=== PATIENT | male | born 1995 | race Two or more races ===

== ENCOUNTER 2021-02-24 15:17 | Emergency (ER) | payer OTHER ==
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
[2021-02-24 16:49] VITALS: BP 143/88
== END 2021-02-24 16:53 | disposition home or self-care (01) ==
LOC: ED 15:17
DX: S01.511A Laceration without foreign body of lip, initial encounter (principal); S02.2XXA Fracture of nasal bones, initial encounter for closed fracture; S02.40DA Maxillary fracture, left side, initial encounter for closed fracture; Y04.2XXA Assault by strike against or bumped into by another person, initial encounter
CPT/HCPCS: 99282; 99284